=== PATIENT | female | born 1965 | race Caucasian/White ===

== ENCOUNTER 2016-03-09 08:27 | Emergency (ER) ==
[2016-03-09 08:37] VITALS: BP 154/82
--- NOTE | 2016-03-09 09:10 | PROVIDER DOCUMENTATION ---
HPI-EENT General - General Chief Complaint: Cold Symptoms Stated Complaint: COLD SX Time Seen by Provider: 03/09/16 08:58 Source: patient Allergies/Adverse Reactions: Patient Allergies Allergy/AdvReac Type Severity Reaction Status Date / Time erythromycin base Allergy Mild HIVES Verified 08/03/15 09:17 [Erythromycin Base] Penicillins Allergy Mild HIVES Verified 08/03/15 09:17 oxybutynin Allergy SHORTNESS Verified 03/09/16 08:37 OF BREATH Home Medications: Meloxicam [Mobic] 15 mg PO DAILY 10/03/13 Lisinopril 2.5 mg PO DAILY 07/15/15 Trazodone [Desyrel] 25 mg PO QHS 07/15/15 Tramadol [Ultram] 50 mg PO Q8H PRN PRN 03/09/16 - History of Present Illness-EENT General Nature of Presenting Problem: Pt is 50 y/o F presents to the ED with sore throat, OSBORN, and congestion. Pt states symptoms started Wednesday. Pt denies F. Pt states she does not smoke. EENT Location: reports: ear (R), ear (L), nose, throat Quality of Pain: reports: aching, pressure Severity: reports: mild Onset/Duration: reports: 4 days ago Timing: reports: still present, intermittent Prearrival Treatment: Initiated no prearrival treatment Associated Symptoms: reports: nasal congestion/drainage, sore throat. denies: cough, ear drainage, fever Locality of Occurance: Home Similar Symptoms Previously?: Yes Recently seen or treated by another doctor?: No - Ears Ear Problem Symptoms: reports: earache (bilateral) Ear Problem Context: reports: none - Nose Nose Problem Symptoms: other (congestion) - Throat/Dental Throat/Dental Problem Symptoms: reports: sore throat. denies: toothache, jaw pain, swelling of jaw/face, trouble breathing, throat swelling, unable to swallow Recently seen a dentist or have an appointment?: No Review of Systems - Adult - REVIEW OF SYSTEMS - ADULT Constitutional: denies: chills, fever Eyes: denies: blurred vision, double vision Ears, Nose, Mouth & Throat: reports: ear pain (bilateral), sinus problem, throat pain Cardiovascular: denies: chest pain, heart murmur, irregular heart rate Respiratory: denies: cough, shortness of breath, wheezing Gastrointestinal: denies: abdominal pain, diarrhea, nausea, vomiting Genitourinary: denies: dysuria, hematuria Musculoskeletal: denies: bone pain, joint pain, neck pain Integumentary: denies: hives, itching Neurological: reports: headache/migraines (OSBORN). denies: dizziness/vertigo Psychiatric: reports: no symptoms reported Endocrine: reports: no symptoms reported Hematologic/Lymphatic: reports: no symptoms reported Allergic/Immunologic: reports: no symptoms reported All Other Systems: Reviewed and Negative Past History - Adult - PAST MEDICAL HISTORY-ADULT Review of Records: reports: Nursing Assessment Review, Medications Reviewed, Social history reviewed & non-contributory. Major Childhood Illnesses: reports: history unknown Cardiovascular: reports: HTN Respiratory: reports: sleep apnea Gastrointestinal: reports: denies history Obstetrical/Gynecological: reports: denies history Genitourinary: reports: kidney stones, other (cysto or similar surgery July_ for incontinence eval) Musculoskeletal: reports: arthritis Neurological: reports: denies history Psychiatric: reports: denies history Endocrine/Immune: reports: denies history Other Conditions: reports: denies history - PRIOR SURGERIES/PROCEDURES Surgical/Procedure History: reports: cholecystectomy, hysterectomy, other ( tubal ligation, bladder surgery) - PRIOR HOSPITALIZATIONS Prior Hospitalizations: reports: for other non-related - IMMUNIZATION STATUS Childhood Immunizations: See Nurse Assessment Flu Vaccine: See Nurse Assessment - FAMILY HISTORY Family History: reviewed, not pertinent - SOCIAL HISTORY Smoking: denies Substance Use: denies Living Situation: family Physical Exam- EENT - Physical Exam EENT General Appearance: appears well, alert, no apparent distress Eye Exam: bilateral eye: normal inspection, PERRL, EOMI Ear Exam: bilateral ear: auricle normal, canal normal, TM normal Nasal Exam: normal inspection Throat Exam: normal mouth inspection, pharynx normal Respiratory: chest non-tender, lungs clear, normal breath sounds, no pleuratic chest pain, no respiratory distress, no accessory muscle use Cardiovascular: normal peripheral pulses, regular rate, rhythm, no edema, no gallop, no JVD, no murmur Abdominal Exam: normal bowel sounds, non tender, soft, no organomegaly, no pulsatile mass Lymphatic: no adenopathy Back Exam: normal inspection, no CVA tenderness, no vertebral tenderness Extremity: normal range of motion, non-tender, normal gait, normal inspection, no pedal edema, no calf tenderness, normal capillary refill, pelvis stable Integumentary: normal color, normal turgor, warm/dry 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, grossly normal, no motor/sensory deficits Psych/Mental Status: AL, normal mood/affect, normal thought content, normal thought process, oriented x 3 Progress - PLAN OF CARE/RESULTS Progress/Plan/Lab Results: Orders Category Date Time Status CHEST-2 VIEWS [RAD] Stat Exams 03/09/16 08:59 Ordered DIRECT STREP Stat Lab 03/09/16 09:[address] Stat Lab 03/09/16 08:59 Ordered Vital Signs - 24 hr 03/09/16 08:33 Temperature 97.1 F L Pulse Rate 99 H Respiratory 20 Rate Blood Pressure 154/82 O2 Sat by Pulse 99 Oximetry Laboratory Tests 03/09/16 03/09/16 09:00 09:00 Influenza A (Rapid) NEGATIVE Influenza B (Rapid) NEGATIVE Group A Strep Rapid NEGATIVE - XRAY 1 XRAY: Bilateral XRAY Study: Chest Impression: Normal XRAY Interpretation: NAD Departure - Departure Time of Disposition Order: 09:38 DIAGNOSIS: Sinusitis Qualifiers: Sinusitis location: unspecified location Chronicity: acute Recurrence: not specified as recurrent Qualified Code(s): J01.90 - Acute sinusitis, unspecified DIAGNOSIS: (Ruled Out): Viral syndrome Disposition: HOME 01 Certified Medical Emergency: Emergent Condition: Stable Additional Instructions: ED Follow Up Instructions: You have been treated by a care provider in the Emergency Department. These instructions are being provided to you so you can have an understanding of how to care for yourself upon discharge. Upon discharge from the Emergency Department, you are responsible for making arrangements for follow-up care by a physician of your choice. Take all prescribed medications as directed. Return to the Emergency Department immediately for any new or worsening symptoms. You may call the Physician Referral phone number at [phone] to obtain a list of Physicians who are taking new patients. Referrals: Isaías Nguyen [Primary Care Provider] - Attestation - Scribe Verification/Attestation Scribe:: Lorraine Salinas Acting as Scribe for:: Darin Gutiérrez Scribe documention review:: This chart was documented by a scribe and accurately reflects the service the provider performed and the decisions made by the provider.
[2016-03-09] MEDS ORDERED: DEPO-MEDROL IM ONE (09:46)
[2016-03-09] MEDS ORDERED: DECADRON IM ONE (09:47)
--- NOTE | 2016-03-09 10:45 | Diag Imaging Result Document ---
PROCEDURE NAME: CHEST-2 VIEWS - 03/09/2016 CHEST 2 VIEWS: Compared with 08/03/2015. FINDINGS: Heart size is normal. The lungs appear clear. There is slight blunting of one of the posterior costophrenic angles which appears to be chronic. There is no consolidation, acute pleural effusion, or pneumothorax identified. There is some mid thoracic spondylosis noted. IMPRESSION: No evidence of acute disease.
== END 2016-03-09 10:29 | disposition home or self-care (01) ==
LOC: P.ED 08:27
DX: J01.90 Acute sinusitis, unspecified (principal); J02.9 Acute pharyngitis, unspecified; R51 Headache; R09.81 Nasal congestion; H92.03 Otalgia, bilateral; I10 Essential (primary) hypertension; M19.90 Unspecified osteoarthritis, unspecified site; Z79.1 Long term (current) use of non-steroidal anti-inflammatories (NSAID); Z79.899 Other long term (current) drug therapy; Z87.442 Personal history of urinary calculi
CPT/HCPCS: 71020; 87081; 87430; 87804; 96372; J1030; J1100